=== PATIENT | female | born 1995 | race Caucasian/White ===

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

== ENCOUNTER → 2017-03-19 | Outpatient (CLI) | payer OTHER | END | disposition home or self-care (01) | LOC: LABWHC1 09:33 | PROVIDERS: ATTEND Physician Assistant | DX: E03.9 Hypothyroidism, unspecified (principal) | CPT/HCPCS: 36415; 84439; 84443 ==

== ENCOUNTER 2017-09-05 09:43 | Observation (INO) | payer OTHER ==
[2017-09-05] MEDS ORDERED: SODIUM CHLORIDE 0.9% 1,000 ML IV STA ×3 (10:21→12:58)
--- NOTE | 2017-09-05 10:25 | ED ---
General Adult HPI - General Chief complaint: Nausea/Vomiting/Diarrhea Stated complaint: Nausea Time Seen by Provider: 09/05/17 10:06 Source: patient, RN notes reviewed Mode of arrival: EMS - History of Present Illness Initial comments: Patient 22-year-old female presenting to the emergency room today by EMS, the chief complaint of syncopal episode. Patient states she woke up this morning. Dizzy little lightheaded was trying to going to the bathroom and passed out. She states she did not hurt herself or her mother was able to help her back up. They called 911. EMS did bring her here to the emergency room. At this time she states she is feeling a little bit better. She states she felt a little nauseous when she first woke up. She does admit to abdominal pain in the lower abdomen but states this is been a chronic issue over the last 2 years. Patient denies any other complaints or symptoms. Patient denies any recent fever, chills , shortness of breath, chest pain, back pain, numbness or tingling, dysuria or hematuria, constipation or diarrhea, headaches or visual changes, or any other complaints. - Related Data Home Medications Medication Instructions Recorded Confirmed Sucralfate [Carafate] 1 gm PO QID 11/25/16 09/05/17 Amitriptyline HCl 25 mg PO DAILY 09/05/17 09/05/17 Levothyroxine Sodium [Synthroid] 100 mcg PO DAILY 09/05/17 09/05/17 Lidocaine 4% Cream [Lmx 4] 1 applic TOPICAL TID PRN 09/05/17 09/05/17 Ranitidine HCl [Zantac] 150 mg PO BID 09/05/17 09/05/17 Viorele 1 tab PO DAILY 09/05/17 09/05/17 Allergies Allergy/AdvReac Type Severity Reaction Status Date / Time No Known Allergies Allergy Verified 09/05/17 12:58 Review of Systems ROS Statement: Those systems with pertinent positive or pertinent negative responses have been documented in the HPI. ROS Other: All systems not noted in ROS Statement are negative. Past Medical History Additional Past Medical History / Comment(s): mom states "pain in stomach when eating and after eating" History of Any Multi-Drug Resistant Organisms: None Reported Additional Past Surgical History / Comment(s): eye surg Past Anesthesia/Blood Transfusion Reactions: No Reported Reaction Additional Past Anesthesia/Blood Transfusion Reaction / Comment(s): no hx blood transfusion Past Psychological History: No Psychological Hx Reported Smoking Status: Never smoker Past Alcohol Use History: None Reported Past Drug Use History: None Reported - Past Family History Mother Family Medical History: No Reported History Father Family Medical History: No Reported History General Exam - General Exam Comments Initial Comments: General: The patient is awake and alert, in no distress, and does not appear acutely ill. Eye: Pupils are equal, round and reactive to light, extra-ocular movements are intact. No nystagmus. There is normal conjunctiva bilaterally. No signs of icterus. Ears, nose, mouth and throat: There are moist mucous membranes and no oral lesions. Neck: The neck is supple, there is no tenderness or JVD. Cardiovascular: There is a regular rate and rhythm. No murmur, rub or gallop is appreciated. Respiratory: Lungs are clear to auscultation, respirations are non-labored, breath sounds are equal. No wheezes, stridor, rales, or rhonchi. Gastrointestinal: Soft, non-distended, non-tender abdomen without masses or organomegaly noted. There is no rebound or guarding present. No CVA tenderness. Bowel sounds are unremarkable. Musculoskeletal: Normal ROM, no tenderness. Strength 5/5. Sensation intact. Pulses equal bilaterally 2+. Neurological: A&O x 3. CN II-XII intact, There are no obvious motor or sensory deficits. Coordination appears grossly intact. Speech is normal. Skin: Skin is warm and dry and no rashes or lesions are noted. Psychiatric: Cooperative, appropriate mood & affect, normal judgment. Course Vital Signs 09/05/17 09/05/17 09/05/17 09:47 10:33 12:59 Temperature 98.9 F Pulse Rate 84 Pulse Rate [ 119 H 120 H Sitting] Pulse Rate [ 90 149 H Standing] Pulse Rate [ 119 H 104 H Supine] Respiratory 20 Rate Blood Pressure 144/70 Blood Pressure 121/74 117/83 [Sitting] Blood Pressure 78/47 75/47 [Standing] Blood Pressure 131/78 126/82 [Supine] O2 Sat by Pulse 100 Oximetry EKG Findings - EKG Comments: EKG Findings:: EKG performed at 1025: Shows normal sinus rhythm at 90 bpm. VA interval 136. QRS 90. QT/QTC 358/437. No acute ST changes. Medical Decision Making - Medical Decision Making 22-year-old female presenting to the emergency room by EMS for syncopal episode. Did feel lightheaded dizzy prior to syncope. Patient reexamined at this time is resting comfortably in the stretcher. Patient reexamination and repeat orthostatic vitals at drop in blood pressure rise in the heart rate. This was after 2 L of fluid. Patient be continued on IV fluids at this time. Patient admits to feeling lightheaded and dizzy when she stands up. Admitted to the hospital for orthostatic hypotension. - Lab Data Result diagrams: 09/05/17 10:18 09/05/17 10:18 Lab Results 09/05/17 09/05/17 09/05/17 Range/Units 10:18 10:18 12:08 WBC 7.0 (4.0-11.0) k/uL RBC 4.71 (3.80-5.40) m/uL Hgb 14.6 (11.4-16.0) gm/dL Hct 42.3 (34.0-46.0) % MCV 89.8 (80.0-100.0) fL MCH 31.0 (25.0-35.0) pg MCHC 34.5 (31.0-37.0) g/dL RDW 12.5 (11.5-15.5) % Plt Count 211 (150-450) k/uL Neutrophils % 82 % Lymphocytes % 10 % Monocytes % 6 % Eosinophils % 0 % Basophils % 1 % Neutrophils # 5.7 (1.3-7.7) k/uL Lymphocytes # 0.7 L (1.0-4.8) k/uL Monocytes # 0.4 (0-1.0) k/uL Eosinophils # 0.0 (0-0.7) k/uL Basophils # 0.0 (0-0.2) k/uL Sodium 140 (137-145) mmol/L Potassium 4.4 (3.5-5.1) mmol/L Chloride 105 (98-107) mmol/L Carbon Dioxide 22 (22-30) mmol/L Anion Gap 13 mmol/L BUN 13 (7-17) mg/dL Creatinine 0.65 (0.52-1.04) mg/dL Est GFR (CKD-EPI)AfAm >90 (>60 ml/min/1.73 sqM) Est GFR (CKD-EPI)NonAf >90 (>60 ml/min/1.73 sqM) Glucose 76 (74-99) mg/dL Calcium 9.4 (8.4-10.2) mg/dL Total Bilirubin 0.5 (0.2-1.3) mg/dL AST 23 (14-36) U/L ALT 26 (9-52) U/L Alkaline Phosphatase 44 (38-126) U/L Total Protein 7.4 (6.3-8.2) g/dL Albumin 4.5 (3.5-5.0) g/dL Amylase 66 (30-110) U/L Lipase 57 (23-300) U/L Urine Color Urine Appearance (Clear) Urine pH (5.0-8.0) Ur Specific [place] (1.001-1.035) Urine Protein (Negative) Urine Glucose (UA) (Negative) Urine Ketones (Negative) Urine Blood (Negative) Urine Nitrite (Negative) Urine Bilirubin (Negative) Urine Urobilinogen (<2.0) mg/dL Ur Leukocyte Esterase (Negative) Urine HCG, Qual Not Detected (Not Detectd) 09/05/17 Range/Units 12:08 WBC (4.0-11.0) k/uL RBC (3.80-5.40) m/uL Hgb (11.4-16.0) gm/dL Hct (34.0-46.0) % MCV (80.0-100.0) fL MCH (25.0-35.0) pg MCHC (31.0-37.0) g/dL RDW (11.5-15.5) % Plt Count (150-450) k/uL Neutrophils % % Lymphocytes % % Monocytes % % Eosinophils % % Basophils % % Neutrophils # (1.3-7.7) k/uL Lymphocytes # (1.0-4.8) k/uL Monocytes # (0-1.0) k/uL Eosinophils # (0-0.7) k/uL Basophils # (0-0.2) k/uL Sodium (137-145) mmol/L Potassium (3.5-5.1) mmol/L Chloride (98-107) mmol/L Carbon Dioxide (22-30) mmol/L Anion Gap mmol/L BUN (7-17) mg/dL Creatinine (0.52-1.04) mg/dL Est GFR (CKD-EPI)AfAm (>60 ml/min/1.73 sqM) Est GFR (CKD-EPI)NonAf (>60 ml/min/1.73 sqM) Glucose (74-99) mg/dL Calcium (8.4-10.2) mg/dL Total Bilirubin (0.2-1.3) mg/dL AST (14-36) U/L ALT (9-52) U/L Alkaline Phosphatase (38-126) U/L Total Protein (6.3-8.2) g/dL Albumin (3.5-5.0) g/dL Amylase (30-110) U/L Lipase (23-300) U/L Urine Color Light Yellow Urine Appearance Clear (Clear) Urine pH 5.5 (5.0-8.0) Ur Specific [place] 1.008 (1.001-1.035) Urine Protein Negative (Negative) Urine Glucose (UA) Negative (Negative) Urine Ketones Trace H (Negative) Urine Blood Negative (Negative) Urine Nitrite Negative (Negative) Urine Bilirubin Negative (Negative) Urine Urobilinogen <2.0 (<2.0) mg/dL Ur Leukocyte Esterase Negative (Negative) Urine HCG, Qual (Not Detectd) Disposition Clinical Impression: Orthostatic hypotension, Syncope Disposition: ADMITTED IP TO THIS [facility] Condition: Stable Referrals: Lowell Gardiner DO [Primary Care Provider] - 1-2 days Time of Disposition: 13:09
[2017-09-05 10:56] LABS: Basophils % (A) 1 %; Eosinophils % (A) 0 %; HCT 42.3 % (34.0-46.0); HGB 14.6 gm/dL (11.4-16.0); Lymphocytes # (A) 0.7 k/uL (1.0-4.8); Lymphocytes % (A) 10 %; MCHC 34.5 g/dL (31.0-37.0); MCV 89.8 fL (80.0-100.0); Mean Platelet Volume 7.4; Monocytes # (A) 0.4 k/uL (0-1.0); Monocytes % (A) 6 %; Neutrophils # (A) 5.7 k/uL (1.3-7.7); Neutrophils % (A) 82 %; Platelet Count 211 k/uL (150-450); RBC 4.71 m/uL (3.80-5.40); RDW 12.5 % (11.5-15.5)
[2017-09-05 11:05] LABS: ALT 26 U/L (9-52); AST 23 U/L (14-36); Albumin 4.5 g/dL (3.5-5.0); Alkaline Phosphatase 44 U/L (38-126); Amylase 66 U/L (30-110); Anion Gap 13 mmol/L; Blood Urea Nitrogen 13 mg/dL (7-17); Calcium 9.4 mg/dL (8.4-10.2); Carbon Dioxide 22 mmol/L (22-30); Chloride 105 mmol/L (98-107); Glucose 76 mg/dL (74-99); Lipase 57 U/L (23-300); Potassium 4.4 mmol/L (3.5-5.1); Sodium 140 mmol/L (137-145); Total Bilirubin 0.5 mg/dL (0.2-1.3); Total Protein 7.4 g/dL (6.3-8.2)
--- NOTE | 2017-09-05 11:15 | XR ---
EXAMINATION TYPE: XR chest 2V DATE OF EXAM: 09/05/2017 HISTORY: Syncope. REFERENCE: Previous study dated 08/02/2012. FINDINGS: The lungs are clear. Pleural spaces are clear. The heart is not enlarged. IMPRESSION: NO ACTIVE INTRATHORACIC DISEASE.
[2017-09-05 12:20] LABS: Appearance,Urine Clear (Clear); Bilirubin,Urine Negative (Negative); Blood,Urine Negative (Negative); Color,Urine Light Yellow; Glucose,Urine (UA) Negative (Negative); Ketones,Urine Trace (Negative); Leukocyte Esterase,Urine Negative (Negative); Nitrite,Urine Negative (Negative); PH, Urine 5.5 (5.0-8.0); Protein,Urine Negative (Negative); Specific Gravity,Urine 1.008 (1.001-1.035); Urobilinogen,Urine <2.0 mg/dL (<2.0)
[2017-09-05] MEDS ORDERED: SODIUM CHLORIDE 0.9% 1,000 ML IV ONE (13:09)
[2017-09-05] MEDS ORDERED: NALOXONE 0.4 MG/ML 1 ML VIAL IV PRN (13:09)
[2017-09-05] MEDS ORDERED: ONDANSETRON 4 MG/2 ML VIAL IVP PRN (13:09)
[2017-09-05] MEDS ORDERED: ACETAMINOPHEN TAB 325 MG TAB PO PRN (13:09)
[2017-09-05 15:29] VITALS: BMI 20.5
--- NOTE | 2017-09-05 16:54 | P.HPIM ---
History of Present Illness 22-year-old female presenting to the emergency room today by EMS, the chief complaint of syncopal episode. Patient states she woke up this morning. Dizzy little lightheaded was trying to going to the bathroom and passed out. Patient appears to have significant orthostatic tachycardia. Blood pressure appears to be within normal limits. Patient does have history of hypogonadism patient denied any diarrhea nausea vomiting patient the denied any poor Intake patient' s symptoms improved with IV fluids. Patient denied any flulike symptoms denied any dysuria denied any cough chest x-ray essentially within normal limits TSH will be obtained. Patient does have history of spinal by Angella. Patient is also being evaluated for chronic abdominal pain by Dr Kathryn Melgoza. EKG shows a normal sinus rhythm. Review of Systems REVIEW OF SYSTEMS: CONSTITUTIONAL: No fever, no malaise, no fatigue. HEENT: No recent visual problems or hearing problems. Denied any sore throat. CARDIOVASCULAR: No chest pain, orthopnea, PND, no palpitations, PULMONARY: No shortness of breath, no cough, no hemoptysis. GASTROINTESTINAL: No diarrhea, no nausea, no vomiting, no abdominal pain. Normoactive bowel sounds. NEUROLOGICAL: No headaches, no weakness, no numbness. HEMATOLOGICAL: Denies any bleeding or petechiae. GENITOURINARY: Denies any burning micturition, frequency, or urgency. MUSCULOSKELETAL/RHEUMATOLOGICAL: Denies any joint pain, swelling, or any muscle pain. ENDOCRINE: Denies any polyuria or polydipsia. The rest of the 14-point review of systems is negative. Past Medical History Additional Past Medical History / Comment(s): mom states "pain in stomach when eating and after eating" History of Any Multi-Drug Resistant Organisms: None Reported Additional Past Surgical History / Comment(s): eye surg Past Anesthesia/Blood Transfusion Reactions: No Reported Reaction Additional Past Anesthesia/Blood Transfusion Reaction / Comment(s): no hx blood transfusion Past Psychological History: No Psychological Hx Reported Smoking Status: Never smoker Past Alcohol Use History: None Reported Past Drug Use History: None Reported - Past Family History Mother Family Medical History: No Reported History Father Family Medical History: No Reported History Medications and Allergies Home Medications Medication Instructions Recorded Confirmed Type Sucralfate [Carafate] 1 gm PO QID 11/25/16 09/05/17 History Amitriptyline HCl 25 mg PO DAILY 09/05/17 09/05/17 History Levothyroxine Sodium [Synthroid] 100 mcg PO DAILY 09/05/17 09/05/17 History Lidocaine 4% Cream [Lmx 4] 1 applic TOPICAL TID PRN 09/05/17 09/05/17 History Ranitidine HCl [Zantac] 150 mg PO BID 09/05/17 09/05/17 History Viorele 1 tab PO DAILY 09/05/17 09/05/17 History Allergies Allergy/AdvReac Type Severity Reaction Status Date / Time No Known Allergies Allergy Verified 09/05/17 12:58 Physical Exam Vitals: Vital Signs Temp Pulse Pulse Pulse Pulse Resp BP 09/05/17 15:18 115 H 90 09/05/17 14:54 97.8 F 96 16 125/84 09/05/17 13:05 98.5 F 94 18 123/78 09/05/17 12:59 120 H 149 H 104 H 09/05/17 10:33 119 H 90 119 H 09/05/17 09:47 98.9 F 84 20 144/70 BP BP BP Pulse Ox 09/05/17 15:18 126/57 131/86 125/87 09/05/17 14:54 100 09/05/17 13:05 100 09/05/17 12:59 117/83 75/47 126/82 09/05/17 10:33 121/74 78/47 131/78 09/05/17 09:47 100 Intake and Output 09/05/17 09/05/17 09/05/17 06:59 14:59 22:59 Other: Weight 52.617 kg 52.617 kg PHYSICAL EXAMINATION: GENERAL: The patient is alert and oriented x3, not in any acute distress. Well developed, well nourished. Patient has some congenital speech abnormalities HEENT: Pupils are round and equally reacting to light. EOMI. No scleral icterus. No conjunctival pallor. Normocephalic, atraumatic. No pharyngeal erythema. No thyromegaly. CARDIOVASCULAR: S1 and S2 present. No murmurs, rubs, or gallops. PULMONARY: Chest is clear to auscultation, no wheezing or crackles. ABDOMEN: Soft, nontender, nondistended, normoactive bowel sounds. No palpable organomegaly. MUSCULOSKELETAL: No joint swelling or deformity. EXTREMITIES: No cyanosis, clubbing, or pedal edema. NEUROLOGICAL: Gross neurological examination did not reveal any new focal deficits. gait is abnormal which is chronic has been present since her childhood secondary to spina bifida SKIN: No rashes. Results CBC & Chem 7: 09/05/17 10:18 09/05/17 10:18 Labs: Abnormal Lab Results - Last 24 Hours (Table) 09/05/17 09/05/17 Range/Units 10:18 12:08 Lymphocytes # 0.7 L (1.0-4.8) k/uL Urine Ketones Trace H (Negative) Assessment and Plan Plan: -Syncope positive orthostatic vitals. Patient is not dehydrated doesn't have any signs or symptoms of infection TSH will be obtained echocardiogram will be obtain looking for mitral valve prolapse. Patient may have postural orthostatic tachycardia syndrome are autonomic dysfunction. Cardiology was consulted. -Hypothyroidism: Patient is a little thyroxine and TSH will be obtained. -History of spina bifida with chronic grade abnormality. -Chronic abdominal pain for which patient is being evaluated by gastroenterology as an outpatient.
[2017-09-05] MEDS ORDERED: RX INFO: IV CONTRAST WAS GIVEN 1 EACH MISC MISCELLANE PRN (20:23)
[2017-09-05] MEDS: SUCRALFATE 1 GM TAB PO SCH (21:53)
[2017-09-05] MEDS: FAMOTIDINE 20 MG TAB PO SCH (21:53)
--- NOTE | 2017-09-05 22:02 | CT ---
EXAMINATION TYPE: CT angio chest DATE OF EXAM: 09/05/2017 COMPARISON: NONE HISTORY: r/o PE. Elevated d-dimer and shortness of breath CT DLP: 122.30 mGycm. Automated Exposure Control for Dose Reduction was Utilized. CONTRAST: CTA scan of the thorax is performed with IV Contrast, patient injected with 75 mL of Isovue 370, pulm onary embolism protocol. MIP Images are created on CT scanner and reviewed. FINDINGS: LUNGS: The lungs are grossly clear, there is no concerning parenchymal mass or nodule identified. T here is no pleural effusion or pneumothorax seen. The tracheobronchial tree is patent. MEDIASTINUM: There is satisfactory enhancement of the pulmonary artery and its branches, there is no CT evidence for pulmonary embolism. There are no greater than 1 cm hilar or mediastinal lymph nodes. No cardiomegaly or pericardial effusion is seen. OTHER: No additional significant abnormality is seen. IMPRESSION: No CT evidence for acute pulmonary embolism. No acute pulmonary process identified.
[2017-09-06 04:13] LABS: Amphetamine Screen,Urine Not Detected (NotDetected); Barbiturate Screen,Urine Not Detected (NotDetected); Benzodiazepines Screen,Urine Not Detected (NotDetected); Cocaine Screen,Urine Not Detected (NotDetected); Methadone Screen, Urine Not Detected (NotDetected); Opiate Screen,Urine Not Detected (NotDetected); Oxycodone Screen, Urine Not Detected (NotDetected); Phencyclidine Screen,Urine Not Detected (NotDetected); Tricyclic Antidepressant,Urine Detected (NotDetected); Urn Cannabinoid Scrn Not Detected (NotDetected)
[2017-09-06 06:15] LABS: Basophils % (A) 1 %; Eosinophils % (A) 1 %; HCT 35.8 % (34.0-46.0); HGB 11.7 gm/dL (11.4-16.0); Lymphocytes # (A) 1.1 k/uL (1.0-4.8); Lymphocytes % (A) 25 %; MCH 30.2 pg (25.0-35.0); MCHC 32.6 g/dL (31.0-37.0); MCV 92.7 fL (80.0-100.0); Monocytes # (A) 0.4 k/uL (0-1.0); Monocytes % (A) 9 %; Neutrophils # (A) 2.6 k/uL (1.3-7.7); Neutrophils % (A) 61 %; Platelet Count 213 k/uL (150-450); RBC 3.86 m/uL (3.80-5.40); RDW 12.7 % (11.5-15.5); WBC 4.2 k/uL (4.0-11.0)
[2017-09-06 06:25] LABS: ALT 26 U/L (9-52); AST 17 U/L (14-36); Albumin 3.3 g/dL (3.5-5.0); Alkaline Phosphatase 30 U/L (38-126); Anion Gap 11 mmol/L; Blood Urea Nitrogen 9 mg/dL (7-17); Calcium 8.7 mg/dL (8.4-10.2); Carbon Dioxide 22 mmol/L (22-30); Chloride 108 mmol/L (98-107); Glucose 74 mg/dL (74-99); Potassium 4.1 mmol/L (3.5-5.1); Sodium 141 mmol/L (137-145); Total Bilirubin 0.5 mg/dL (0.2-1.3); Total Protein 5.9 g/dL (6.3-8.2)
[2017-09-06] MEDS: SUCRALFATE 1 GM TAB PO SCH ×4 (08:54→20:40)
[2017-09-06] MEDS: FAMOTIDINE 20 MG TAB PO SCH ×2 (08:54→20:40)
--- NOTE | 2017-09-06 09:13 | P.CRDCN ---
History of Present Illness Consult date: 09/06/17 Chief complaint: Syncopal episode History of present illness: This is a pleasant 22-year-old female patient who was admitted to the hospital with syncope. She was at home with her mother when she had a witnessed syncopal episode. She was standing before she lost her consciousness. Does not recall having any symptoms of heart racing or fluttering nor dizziness or lightheadedness nor chest pain or chest discomfort. Never had syncope in the past. When she presented to the hospital she did have an orthostatic blood pressure changes and she was admitted to the hospital and was given IV fluid. On follow-up with the patient today, she is feeling overall better but she still dizzy and lightheaded. She denies having any chest pain or chest discomfort. The EKG showed sinus rhythm without any significant changes. The chest x-ray did not show any acute abnormalities. No cardiac arrhythmia was noted overnight. I am going to repeat the orthostatic blood pressure this morning. If it's positive she is to be given IV fluid again. Also she might benefit from a tilt table test as an outpatient. Past Medical History Additional Past Medical History / Comment(s): mom states "pain in stomach when eating and after eating" History of Any Multi-Drug Resistant Organisms: None Reported Additional Past Surgical History / Comment(s): eye surg Past Anesthesia/Blood Transfusion Reactions: No Reported Reaction Additional Past Anesthesia/Blood Transfusion Reaction / Comment(s): no hx blood transfusion Past Psychological History: No Psychological Hx Reported Smoking Status: Never smoker Past Alcohol Use History: None Reported Past Drug Use History: None Reported - Past Family History Mother Family Medical History: No Reported History Father Family Medical History: No Reported History Medications and Allergies Home Medications Medication Instructions Recorded Confirmed Type Sucralfate [Carafate] 1 gm PO QID 11/25/16 09/05/17 History Amitriptyline HCl 25 mg PO DAILY 09/05/17 09/05/17 History Levothyroxine Sodium [Synthroid] 100 mcg PO DAILY 09/05/17 09/05/17 History Lidocaine 4% Cream [Lmx 4] 1 applic TOPICAL TID PRN 09/05/17 09/05/17 History Ranitidine HCl [Zantac] 150 mg PO BID 09/05/17 09/05/17 History Viorele 1 tab PO DAILY 09/05/17 09/05/17 History Allergies Allergy/AdvReac Type Severity Reaction Status Date / Time No Known Allergies Allergy Verified 09/05/17 12:58 Physical Exam Vitals: Vital Signs Temp Pulse Pulse Pulse Pulse Resp BP 09/06/17 08:00 97.8 F 125 H 100 18 09/06/17 03:59 97.9 F 80 18 09/06/17 00:00 97.6 F 98 16 09/05/17 20:00 99.1 F 95 100 105 H 16 09/05/17 15:18 115 H 90 09/05/17 14:54 97.8 F 96 16 125/84 09/05/17 13:05 98.5 F 94 18 123/78 09/05/17 12:59 120 H 149 H 104 H 09/05/17 10:33 119 H 90 119 H 09/05/17 09:47 98.9 F 84 20 144/70 BP BP BP Pulse Ox 09/06/17 08:00 103/65 113/64 98 09/06/17 03:59 118/71 99 09/06/17 00:00 110/62 98 09/05/17 20:00 127/78 123/84 123/67 98 09/05/17 15:18 126/57 131/86 125/87 09/05/17 14:54 100 09/05/17 13:05 100 09/05/17 12:59 117/83 75/47 126/82 09/05/17 10:33 121/74 78/47 131/78 09/05/17 09:47 100 Intake and Output 09/05/17 09/06/17 09/06/17 22:59 06:59 14:59 Output Total 850 Balance -850 Output: Urine 850 Other: # Voids 1 Weight 52.617 kg 56 kg - Constitutional General appearance: no acute distress - Respiratory Respiratory: bilateral: CTA - Cardiovascular Rhythm: regular Heart sounds: normal: S1, S2 Results 09/06/17 05:35 09/06/17 05:35 Cardiac Enzymes 09/05/17 09/06/17 Range/Units 10:18 05:35 AST 23 17 (14-36) U/L CBC 09/05/17 09/06/17 Range/Units 10:18 05:35 WBC 7.0 4.2 (4.0-11.0) k/uL RBC 4.71 3.86 (3.80-5.40) m/uL Hgb 14.6 11.7 (11.4-16.0) gm/dL Hct 42.3 35.8 (34.0-46.0) % Plt Count 211 213 (150-450) k/uL Comprehensive Metabolic Panel 09/05/17 09/06/17 Range/Units 10:18 05:35 Sodium 140 141 (137-145) mmol/L Potassium 4.4 4.1 (3.5-5.1) mmol/L Chloride 105 108 H (98-107) mmol/L Carbon Dioxide 22 22 (22-30) mmol/L BUN 13 9 (7-17) mg/dL Creatinine 0.65 0.60 (0.52-1.04) mg/dL Glucose 76 74 (74-99) mg/dL Calcium 9.4 8.7 (8.4-10.2) mg/dL AST 23 17 (14-36) U/L ALT 26 26 (9-52) U/L Alkaline Phosphatase 44 30 L (38-126) U/L Total Protein 7.4 5.9 L (6.3-8.2) g/dL Albumin 4.5 3.3 L (3.5-5.0) g/dL Current Medications Generic Name Dose Route Start Last Admin Trade Name Freq PRN Reason Stop Dose Admin Acetaminophen 650 mg 09/05/17 13:09 09/06/17 03:56 Tylenol Tab PO 650 mg Q6HR PRN Administration Mild Pain or Fever > 100.5 Famotidine 20 mg 09/05/17 21:00 09/06/17 08:54 Pepcid PO 20 mg BID PATRICIA Administration Miscellaneous Information 1 each 09/05/17 20:23 Rx Info: Iv Contrast Was Given MISCELLANE 09/07/17 20:24 DAILY PRN Per Protocol Naloxone HCl 0.2 mg 09/05/17 13:09 Narcan IV Q2M PRN Opioid Reversal Ondansetron HCl 4 mg 09/05/17 13:09 Zofran IVP Q8HR PRN Nausea And Vomiting Sucralfate 1 gm 09/05/17 22:00 09/06/17 08:54 Carafate PO 1 gm QID PATRICIA Administration Intake and Output 09/05/17 09/06/17 09/06/17 22:59 06:59 14:59 Output Total 850 Balance -850 Output: Urine 850 Other: # Voids 1 Weight 52.617 kg 56 kg 09/06/17 05:35 09/06/17 05:35 Assessment and Plan Assessment: Assessment #1 witnessed syncopal episode #2 orthostatic hypotension. Plan #1 I will repeat orthostatic blood pressure this morning #2 I will obtain an echocardiogram was Doppler #3 follow-up with the patient. The patient might benefit from a tilt table test as an outpatient. Thank you for allowing us participate in her care
--- NOTE | 2017-09-06 14:54 | P.PN ---
Subjective 22-year-old female admitted for syncope orthostatic tachycardia. Echocardiogram is pending patient is coming of lightheadedness but feeling better IV fluids are being continued patient on Lotrel table testing tomorrow. Constitutional: Denied any fatigue denied any fever. Cardio vascular: denied any chest pain, palpitations Gastrointestinal denied any nausea vomiting Pulmonary: Denied any shortness of breath cough Neurologic denied any new focal deficits Objective - Vital Signs Vital signs: Vital Signs Temp 98.2 F 09/06/17 11:41 Pulse 103 H 09/06/17 11:41 Resp 18 09/06/17 08:00 BP 122/80 09/06/17 11:41 Pulse Ox 98 09/06/17 08:00 Intake & Output 09/05/17 09/06/17 09/06/17 18:59 06:59 18:59 Intake Total 235 Output Total 850 Balance -850 235 Weight 52.617 kg 56 kg Intake: Oral 235 Output: Urine 850 Other: # Voids 1 3 - Exam PHYSICAL EXAMINATION: GENERAL: The patient is alert and oriented x3, not in any acute distress. Well developed, well nourished. HEENT: Pupils are round and equally reacting to light. EOMI. No scleral icterus. No conjunctival pallor. Normocephalic, atraumatic. No pharyngeal erythema. No thyromegaly. CARDIOVASCULAR: S1 and S2 present. No murmurs, rubs, or gallops. PULMONARY: Chest is clear to auscultation, no wheezing or crackles. ABDOMEN: Soft, nontender, nondistended, normoactive bowel sounds. No palpable organomegaly. MUSCULOSKELETAL: No joint swelling or deformity. EXTREMITIES: No cyanosis, clubbing, or pedal edema. NEUROLOGICAL: Gross neurological examination did not reveal any focal deficits. SKIN: No rashes. - Labs CBC & Chem 7: 09/06/17 05:35 09/06/17 05:35 Labs: Abnormal Lab Results - Last 24 Hours (Table) 09/05/17 09/06/17 09/06/17 Range/Units 16:56 03:49 05:35 D-Dimer 0.77 H (<0.60) mg/L FEU Chloride 108 H (98-107) mmol/L Alkaline Phosphatase 30 L (38-126) U/L Total Protein 5.9 L (6.3-8.2) g/dL Albumin 3.3 L (3.5-5.0) g/dL U Tricyclic Antidepress Detected H (NotDetected) Assessment and Plan Plan: -Syncope positive orthostatic vitals. Patient is not dehydrated doesn't have any signs or symptoms of infection TSH will be obtained echocardiogram will be obtain looking for mitral valve prolapse. Patient may have postural orthostatic tachycardia syndrome are autonomic dysfunction. Cardiology evaluated the patient echo is pending. Patient will undergo tilt table testing. -Hypothyroidism: Patient is a little thyroxine, TSH is within normal limits -History of spina bifida with chronic grade abnormality. -Chronic abdominal pain for which patient is being evaluated by gastroenterology as an outpatient.
[2017-09-06] MEDS: SODIUM CHLORIDE 0.9% 1,000 ML IV SCH (22:11)
[2017-09-07 06:34] LABS: Basophils # (A) 0.1 k/uL (0-0.2); Basophils % (A) 1 %; Eosinophils # (A) 0.1 k/uL (0-0.7); Eosinophils % (A) 2 %; HCT 40.5 % (34.0-46.0); HGB 13.8 gm/dL (11.4-16.0); Lymphocytes # (A) 1.1 k/uL (1.0-4.8); Lymphocytes % (A) 21 %; MCH 31.3 pg (25.0-35.0); Mean Platelet Volume 7.6; Monocytes # (A) 0.4 k/uL (0-1.0); Monocytes % (A) 7 %; Neutrophils # (A) 3.6 k/uL (1.3-7.7); Neutrophils % (A) 67 %; Platelet Count 230 k/uL (150-450); RBC 4.41 m/uL (3.80-5.40); RDW 12.6 % (11.5-15.5); WBC 5.4 k/uL (4.0-11.0)
[2017-09-07 06:54] LABS: Anion Gap 12 mmol/L; Blood Urea Nitrogen 12 mg/dL (7-17); Calcium 9.8 mg/dL (8.4-10.2); Carbon Dioxide 28 mmol/L (22-30); Chloride 101 mmol/L (98-107); Glucose 79 mg/dL (74-99); Potassium 4.6 mmol/L (3.5-5.1); Sodium 141 mmol/L (137-145)
[2017-09-07 07:53] VITALS: RESP 18
[2017-09-07] MEDS: SUCRALFATE 1 GM TAB PO SCH ×3 (08:17→17:22)
[2017-09-07] MEDS: FAMOTIDINE 20 MG TAB PO SCH (08:17)
--- NOTE | 2017-09-07 08:47 | P.PN ---
Subjective Progress Note Date: 09/07/17 Principal diagnosis: Syncope This is a pleasant 22-year-old female patient who was admitted to the hospital with a witnessed syncopal episode. She had positive orthostatic hypotension when she presented to the hospital and that was improved the following day after IV hydration. Her heart rate keep going up once she is doing any little movement. She is going to have a tilt table test today. Also an echocardiogram is in process to be done. She denies having any chest pain or discomfort but clearly she continues to be very dizzy. Objective - Vital Signs Vital signs: Vital Signs Temp 97.8 F 09/07/17 07:49 Pulse 103 H 09/07/17 07:49 Resp 18 09/07/17 07:49 BP 120/68 09/07/17 07:49 Pulse Ox 98 09/07/17 07:49 Intake & Output 09/06/17 09/07/17 09/07/17 18:59 06:59 18:59 Intake Total 235 250 Output Total 200 Balance 235 50 Weight 52.9 kg Intake: Oral 235 250 Output: Urine 200 Other: Voiding Method Toilet # Voids 3 1 # Bowel Movements 0 - Constitutional General appearance: Present: no acute distress - Respiratory Respiratory: bilateral: CTA - Cardiovascular Rhythm: regular Heart sounds: normal: S1, S2 - Labs CBC & Chem 7: 09/07/17 05:43 09/07/17 05:43 Assessment and Plan Assessment: Assessment #1 witnessed syncopal episode #2 orthostatic hypotension. Plan #1 dual table test to be done later on today. #2 follow-up with the echocardiogram Thank you for allowing us participate in her care
[2017-09-07] MEDS ORDERED: SODIUM CHLORIDE 0.9% 500 ML IV ONE (10:02)
[2017-09-07] MEDS ORDERED: SODIUM CHLORIDE 0.9% 1,000 ML IV SCH (10:15)
--- NOTE | 2017-09-07 11:19 | P.PCN ---
Preoperative Diagnosis: Twelve-lead ECG reviewed Sinus rhythm normal [place] narrow QRS normal ST segments Tilt table test ordered by Dr. Mart Baseline blood pressure 139/92 mmHg Baseline heart rate 97 beats a minute Patient tilted upright at an angle of 70 per protocol. Immediately drop in blood pressure to 114/92 mmHg. Heart rates increased 233 beats a minute. Thereafter blood pressure remained stable heart rate remained between 130-140 beats a minute. Initially she was dizzy but gradually she improved. Intermittently she felt a bit warm. No syncope When she was laid supine her blood pressure increased 242/87 mmHg the pulse rate decreased to 87 bpm Impression Findings consistent with orthostatic hypotension with a mild drop in blood pressure in the supine position along with reflex sinus tachycardia
[2017-09-07] MEDS: SODIUM CHLORIDE 0.9% 1,000 ML IV SCH (11:24)
--- NOTE | 2017-09-07 13:08 | P.DS ---
Providers Date of admission: 09/05/17 14:36 Attending physician: Jose Francisco Barrow Consults: 09/05/17 13:09 Consult Physician Stat Consulting Provider: [facility] Consult Reason/Comments: Orthostatic hypotension Do you want consulting provider notified?: Yes [facility] Course: Patient is admitted for syncope. Found to have tachycardia associated with standing. Patient probably has postural orthostatic tachycardia syndrome. Patient was started on hydrocortisone still complaining of some lightheadedness. Patient tilt table test is positive. Patient will be discharged with follow with Cardiology and primary care physician. PHYSICAL EXAMINATION: GENERAL: The patient is alert and oriented x3, not in any acute distress. Well developed, well nourished. HEENT: Pupils are round and equally reacting to light. EOMI. No scleral icterus. No conjunctival pallor. Normocephalic, atraumatic. No pharyngeal erythema. No thyromegaly. CARDIOVASCULAR: S1 and S2 present. No murmurs, rubs, or gallops. PULMONARY: Chest is clear to auscultation, no wheezing or crackles. ABDOMEN: Soft, nontender, nondistended, normoactive bowel sounds. No palpable organomegaly. MUSCULOSKELETAL: No joint swelling or deformity. EXTREMITIES: No cyanosis, clubbing, or pedal edema. NEUROLOGICAL: Gross neurological examination did not reveal any focal deficits. SKIN: No rashes. Assessment and Plan Plan: -Syncope positive orthostatic vitals. Patient is not dehydrated doesn't have any signs or symptoms of infection TSH will be obtained e Echocardiac exam will be obtained as an outpatient -Hypothyroidism: Patient is a little thyroxine, TSH is within normal limits -History of spina bifida with chronic grade abnormality. -Chronic abdominal pain for which patient is being evaluated by gastroenterology as an outpatient. Patient Condition at Discharge: Stable Plan - Discharge Summary Discharge Rx Participant: Yes New Discharge Prescriptions: New Fludrocortisone [Florinef] 0.1 mg PO DAILY #30 tablet No Action Sucralfate [Carafate] 1 gm PO QID Viorele 1 tab PO DAILY Ranitidine HCl [Zantac] 150 mg PO BID Amitriptyline HCl 25 mg PO DAILY Lidocaine 4% Cream [Lmx 4] 1 applic TOPICAL TID PRN PRN Reason: Pain Levothyroxine Sodium [Synthroid] 100 mcg PO DAILY Discharge Medication List Sucralfate [Carafate] 1 gm PO QID 11/25/16 [History] Amitriptyline HCl 25 mg PO DAILY 09/05/17 [History] Levothyroxine Sodium [Synthroid] 100 mcg PO DAILY 09/05/17 [History] Lidocaine 4% Cream [Lmx 4] 1 applic TOPICAL TID PRN 09/05/17 [History] Ranitidine HCl [Zantac] 150 mg PO BID 09/05/17 [History] Viorele 1 tab PO DAILY 09/05/17 [History] Fludrocortisone [Florinef] 0.1 mg PO DAILY #30 tablet 09/07/17 [Rx] Follow up Appointment(s)/Referral(s): Lowell Gardiner DO [Primary Care Provider] - 09/16/17 12:00 pm (With Lizabeth.) Raudel Gonzalez MD [STAFF PHYSICIAN] - 1 Week Patient Instructions/Handouts: Transthoracic Echocardiogram (DC), Syncope (DC) , Tilt Table Test (DC) Activity/Diet/Wound Care/Special Instructions: Awaiting cardiology recommendations if follow up is needed after ECHO and tilt table. Discharge Disposition: HOME SELF-CARE
[2017-09-07 15:24] VITALS: BP 132/68; PULSE 97; TEMP 97.7
--- NOTE | 2017-09-07 15:50 | ECHOF ---
Referral Reason:syncope MEASUREMENTS -------- HEIGHT: 160.0 cm WEIGHT: 52.6 kg BP: 104/62 IVSd: 1.0 cm (0.6 - 1.1) LVIDd: 3.7 cm (3.9 - 5.3) LVPWd: 0.9 cm (0.6 - 1.1) IVSs: 1.0 cm LVIDs: 2.9 cm LVPWs: 1.0 cm LA Diam: 2.2 cm (2.7 - 3.8) RVIDd: 1.8 cm (< 3.3) Ao Diam: 2.7 cm (2.0 - 3.7) LA Diam: 2.1 cm (2.7 - 3.8) AV Cusp: 1.7 cm (1.5 - 2.6) EPSS: 0.3 cm MV E Tyler: 0.68 m/s MV DecT: 178 ms MV A Tyler: 0.65 m/s MV E/A Ratio: 1.05 RAP: 5.00 mmHg RVSP: 13.38 mmHg MV EF SLOPE: 59.46 mm/s (70 - 150) MV EXCURSION: 21.91 mm (> 18.000) FINDINGS -------- Sinus rhythm. This was a technically good study. LV size, wall thickness and systolic function are normal, with an EF greater than 55%. The left rick tricular size is normal. The right ventricle is normal in size. The left atrial size is normal. The right atrial size is normal. The aortic valve is trileaflet, and appears structurally normal. No aortic stenosis or regurgitation. Mild mitral annular calcification present. There is trace mitral regurgitation. Mild tricuspid regurgitation present. There is no evidence of pulmonary hypertension. The right v entricular systolic pressure, as measured by Doppler, is 13.38mmHg. Trace/mild (physiologic) pulmonic regurgitation. The aortic root size is normal. There is no pericardial effusion. CONCLUSIONS -------- 1. LV size, wall thickness and systolic function are normal, with an EF greater than 55%. 2. The left ventricular size is normal. 3. The left atrial size is normal. 4. The aortic valve is trileaflet, and appears structurally normal. No aortic stenosis or regurgitati on. 5. Mild mitral annular calcification present. 6. There is trace mitral regurgitation. 7. Mild tricuspid regurgitation present. 8. There is no evidence of pulmonary hypertension. 9. The right ventricular systolic pressure, as measured by Doppler, is 13.38mmHg. 10. Trace/mild (physiologic) pulmonic regurgitation. 11. The aortic root size is normal. 12. There is no pericardial effusion. BAND LEADER: Regi Gentile RDCS
== END 2017-09-07 19:38 | disposition home or self-care (01) ==
LOC: EC 09:43 → SUPCPDRO 09:43 → 6SEL 14:36
PROVIDERS: ADMIT Hospitalist; ATTEND Hospitalist
DX: I95.1 Orthostatic hypotension (principal); E03.9 Hypothyroidism, unspecified; Q05.9 Spina bifida, unspecified; G89.29 Other chronic pain; R10.30 Lower abdominal pain, unspecified; E23.0 Hypopituitarism; Z79.899 Other long term (current) drug therapy; Z79.890 Hormone replacement therapy; Z79.3 Long term (current) use of hormonal contraceptives; R00.0 Tachycardia, unspecified
CPT/HCPCS: 36415; 71046; 71275; 80048; 80053; 80306; 81003; 81025; 82150; 83690; 84443; 85025; 85379; 93005; 93306; 93660; 96360; 96361; 99285

== ENCOUNTER → 2017-12-10 | Outpatient (CLI) | payer OTHER ==
--- NOTE | 2017-12-10 11:17 | US ---
EXAMINATION TYPE: US abdomen limited DATE OF EXAM: 12/10/2017 COMPARISON: Complete abdominal ultrasound June 09, 2016. CLINICAL HISTORY: R10.9 Abdominal Pain. RUQ pain, NPO EXAM MEASUREMENTS: Liver Length: 15.0 cm Gallbladder Wall: 0.1 cm CBD: 0.2 cm CHD: 0.2 cm Right Kidney: 9.6 x4.6 x 3.6 cm Pancreas: wnl Liver: wnl Gallbladder: wnl Evidence for sonographic Calixto's sign: neg CBD: wnl CHD: wnl Right Kidney: wnl, prominent pyramids seen IMPRESSION: No shadowing mobile gallstones or ultrasound evidence for acute cholecystitis.
== END | disposition home or self-care (01) ==
LOC: RADUSWWP 09:23
PROVIDERS: ATTEND Internal Medicine Gastroenterology
DX: R10.9 Unspecified abdominal pain (principal)
CPT/HCPCS: 76705

== ENCOUNTER 2018-01-02 16:23 | Emergency (ER) | payer OTHER ==
[2018-01-02 17:04] VITALS: TEMP 98.3
--- NOTE | 2018-01-02 20:13 | ED ---
General Adult HPI - General Chief complaint: Dizziness Stated complaint: pale Time Seen by Provider: 01/02/18 19:32 Source: patient, family, RN notes reviewed, old records reviewed Mode of arrival: wheelchair Limitations: no limitations - History of Present Illness Initial comments: Chief complaint and history of present illness a 22-year-old female here with the mother. The patient has a history of pots syndrome. Today she took a Minipress prescribed by her psychiatrist because of high blood pressure. Soon thereafter she had a funny sensation of her heart beating and she felt dizzy. No nausea no vomiting no pain. - Related Data Home Medications Medication Instructions Recorded Confirmed Sucralfate [Carafate] 1 gm PO QID 11/25/16 09/05/17 Levothyroxine Sodium [Synthroid] 100 mcg PO DAILY 09/05/17 09/05/17 Lidocaine 4% Cream [Lmx 4] 1 applic TOPICAL TID PRN 09/05/17 09/05/17 Ranitidine HCl [Zantac] 150 mg PO BID 09/05/17 09/05/17 Viorele 1 tab PO DAILY 09/05/17 09/05/17 Previous Rx's Medication Instructions Recorded Fludrocortisone [Florinef] 0.1 mg PO DAILY #30 tablet 09/07/17 Allergies Allergy/AdvReac Type Severity Reaction Status Date / Time No Known Allergies Allergy Verified 09/05/17 12:58 Review of Systems ROS Statement: Those systems with pertinent positive or pertinent negative responses have been documented in the HPI. Review of systems currently no chest pain or palpitations denies being dizzy. Patient took 1 Minipress 1 mg earlier shortly thereafter had the symptoms. The patient is also taking Florinef keep her blood pressure up. As prescribed by her manager of applications development. Patient had a positive tilt test in August, diagnosed with POTS after a syncopal episode. She also takes a low dose of thyroid supplement. 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 Possibility of mild dehydration also considered. ROS Other: All systems not noted in ROS Statement are negative. Past Medical History Additional Past Medical History / Comment(s): mom states "pain in stomach when eating and after eating" History of Any Multi-Drug Resistant Organisms: None Reported Additional Past Surgical History / Comment(s): eye surg Past Anesthesia/Blood Transfusion Reactions: No Reported Reaction Additional Past Anesthesia/Blood Transfusion Reaction / Comment(s): no hx blood transfusion Past Psychological History: Depression Smoking Status: Never smoker Past Alcohol Use History: None Reported Past Drug Use History: None Reported - Past Family History Mother Family Medical History: No Reported History Father Family Medical History: No Reported History General Exam - General Exam Comments Initial Comments: General: The patient is awake and alert, had potential side effect to taking a Minipress earlier in the day. Vital signs show temperature 98.3 pulse 91 respiratory rate 16 pulse ox 90% room air blood pressure 147/88 Eye: Pupils are equal, round and reactive to light, extra-ocular movements are intact ; there is normal conjunctiva bilaterally. No signs of icterus. Ears, nose, mouth and throat: There are moist mucous membranes and no oral lesions. Neck: The neck is supple, there is no tenderness . Cardiovascular: There is a regular rate and rhythm. No murmur, rub or gallop is appreciated. Respiratory: Lungs are clear to auscultation, respirations are non-labored, breath sounds are equal. No wheezes, stridor, rales, or rhonchi. Gastrointestinal: Soft, non-distended, non-tender abdomen without masses or organomegaly noted. There is no rebound or guarding present. No CVA tenderness. Bowel sounds are unremarkable. Back: There is no tenderness to palpation in the midline. There is no obvious deformity. No rashes noted. History spina bifida Musculoskeletal: Normal ROM, no tenderness, There is no pedal edema. There is no calf tenderness or swelling. Sensation intact. Pulses equal bilaterally 2+. Neurological: CN II-XII intact, There are no obvious motor or sensory deficits. Coordination appears grossly intact. . No neuro deficits Skin: Skin is warm and dry and no rashes or lesions are noted. Psychiatric: Cooperative, Limitations: no limitations Course Vital Signs 01/02/18 01/02/18 16:57 21:39 Temperature 98.3 F Pulse Rate 91 Pulse Rate [ 63 Sitting] Pulse Rate [ 67 Standing] Pulse Rate [ 60 Supine] Respiratory 16 Rate Blood Pressure 147/88 Blood Pressure 145/90 [Right Arm Sitting] Blood Pressure 139/90 [Right Arm Standing] Blood Pressure 148/89 [Right Arm Supine] O2 Sat by Pulse 98 Oximetry EKG Findings - EKG Comments: EKG Findings:: EKG was done and reviewed at 2134 showing sinus bradycardia rate 58. No acute ST elevation no ectopy no ischemic changes. IA interval is 1:30 QRS 86 QT [address] Huitron Medical Decision Making - Medical Decision Making Medical decision making; this is a 22-year-old female who was prescribed, by her psychiatrist, Minipress because of high blood pressure in the office. She does have a history of pots. She takes Florinef keep the blood pressure elevated. An hour or so after she took medication she said she felt dizzy and weak. She went home and rested. Because of her history of pots she's come the emergency room. Patient denying any headache chest pain palpitations shortness breath at this time though she did earlier. Patient had orthostatics performed while in emergency room laying blood pressure 148/86 with a heart rate 1 await. Sitting was 145/90 with a heart rate of 108. Standing 139/80 with heart rate of 106. She did not feel funny during the examination. Patient was working outside on a hot day today. She thought she may be slightly dehydrated. Labs show white count of 5 hemoglobin 12.8 hematocrit of 40 with a potassium 3.3. He went 9 creatinine 0.5 the GFR 90. Glucose 83. The patient did receive a bolus of fluid 500 ML's states she feels better. No dizziness. No neuro deficits appreciated. Orthostatics were performed a state within normal limits. Patient's feeling better. She was advised not to take anymore Minipress. Call follow-up with family physician and manager of applications development. Continue her home medications and stay hydrated. Eat a balanced diet. Released to mother's care. - Lab Data Result diagrams: 01/02/18 21:17 01/02/18 21:17 Lab Results 01/02/18 01/02/18 Range/Units 21:17 21:17 WBC 5.4 (4.0-11.0) k/uL RBC 4.40 (3.80-5.40) m/uL Hgb 12.8 (11.4-16.0) gm/dL Hct 40.2 (34.0-46.0) % MCV 91.3 (80.0-100.0) fL MCH 29.2 (25.0-35.0) pg MCHC 31.9 (31.0-37.0) g/dL RDW 12.9 (11.5-15.5) % Plt Count 216 (150-450) k/uL Neutrophils % 67 % Lymphocytes % 22 % Monocytes % 7 % Eosinophils % 0 % Basophils % 1 % Neutrophils # 3.6 (1.3-7.7) k/uL Lymphocytes # 1.2 (1.0-4.8) k/uL Monocytes # 0.4 (0-1.0) k/uL Eosinophils # 0.0 (0-0.7) k/uL Basophils # 0.0 (0-0.2) k/uL Sodium 140 (137-145) mmol/L Potassium 3.3 L (3.5-5.1) mmol/L Chloride 105 (98-107) mmol/L Carbon Dioxide 26 (22-30) mmol/L Anion Gap 9 mmol/L BUN 9 (7-17) mg/dL Creatinine 0.50 L (0.52-1.04) mg/dL Est GFR (CKD-EPI)AfAm >90 (>60 ml/min/1.73 sqM) Est GFR (CKD-EPI)NonAf >90 (>60 ml/min/1.73 sqM) Glucose 83 (74-99) mg/dL Calcium 9.3 (8.4-10.2) mg/dL Disposition Clinical Impression: Adverse reaction to drug, Orthostatic hypotension Disposition: HOME SELF-CARE Condition: Fair Instructions: Dizziness (ED) Is patient prescribed a controlled substance at d/c from ED?: No Referrals: Lowell Gardiner DO [Primary Care Provider] - 1-2 days Time of Disposition: 22:39
[2018-01-02 21:37] LABS: Basophils % (A) 1 %; Eosinophils % (A) 0 %; HCT 40.2 % (34.0-46.0); HGB 12.8 gm/dL (11.4-16.0); Lymphocytes # (A) 1.2 k/uL (1.0-4.8); Lymphocytes % (A) 22 %; MCH 29.2 pg (25.0-35.0); MCHC 31.9 g/dL (31.0-37.0); MCV 91.3 fL (80.0-100.0); Mean Platelet Volume 8.1; Monocytes # (A) 0.4 k/uL (0-1.0); Monocytes % (A) 7 %; Neutrophils # (A) 3.6 k/uL (1.3-7.7); Neutrophils % (A) 67 %; Platelet Count 216 k/uL (150-450); RDW 12.9 % (11.5-15.5); WBC 5.4 k/uL (4.0-11.0)
[2018-01-02 21:49] LABS: Anion Gap 9 mmol/L; Blood Urea Nitrogen 9 mg/dL (7-17); Calcium 9.3 mg/dL (8.4-10.2); Carbon Dioxide 26 mmol/L (22-30); Chloride 105 mmol/L (98-107); Glucose 83 mg/dL (74-99); Potassium 3.3 mmol/L (3.5-5.1); Sodium 140 mmol/L (137-145)
[2018-01-02 22:50] VITALS: BP 142/99; PULSE 76; RESP 17
== END 2018-01-02 22:50 | disposition home or self-care (01) ==
LOC: EC 16:23
DX: I95.1 Orthostatic hypotension (principal); T44.6X5A Adverse effect of alpha-adrenoreceptor antagonists, initial encounter; Z79.3 Long term (current) use of hormonal contraceptives; Z79.899 Other long term (current) drug therapy
CPT/HCPCS: 36415; 80048; 85025; 93005; 99284

== ENCOUNTER → 2018-01-20 | Outpatient (CLI) | payer OTHER ==
[2018-01-20 12:27] LABS: Basophils % (A) 1 %; Eosinophils % (A) 1 %; HCT 43.5 % (34.0-46.0); HGB 14.2 gm/dL (11.4-16.0); Lymphocytes % (A) 22 %; MCH 30.4 pg (25.0-35.0); MCHC 32.7 g/dL (31.0-37.0); MCV 92.9 fL (80.0-100.0); Mean Platelet Volume 8.2; Monocytes # (A) 0.3 k/uL (0-1.0); Monocytes % (A) 7 %; Neutrophils # (A) 3.2 k/uL (1.3-7.7); Neutrophils % (A) 68 %; Platelet Count 214 k/uL (150-450); RBC 4.69 m/uL (3.80-5.40); WBC 4.7 k/uL (4.0-11.0)
[2018-01-20 12:46] LABS: ALT 30 U/L (9-52); AST 21 U/L (14-36); Albumin 4.8 g/dL (3.5-5.0); Alkaline Phosphatase 49 U/L (38-126); Anion Gap 9 mmol/L; Blood Urea Nitrogen 7 mg/dL (7-17); Calcium 9.6 mg/dL (8.4-10.2); Carbon Dioxide 29 mmol/L (22-30); Chloride 103 mmol/L (98-107); Glucose 80 mg/dL (74-99); Potassium 3.9 mmol/L (3.5-5.1); Sodium 141 mmol/L (137-145); Total Bilirubin 0.7 mg/dL (0.2-1.3); Total Protein 7.7 g/dL (6.3-8.2)
[2018-01-20 13:00] LABS: T4, Free (Free Thyroxine) 1.13 ng/dL (0.78-2.19)
== END | disposition home or self-care (01) ==
LOC: LABWHC1 11:28
PROVIDERS: ATTEND Physician Assistant
DX: E03.9 Hypothyroidism, unspecified (principal); Q03.1 Atresia of foramina of Magendie and Luschka; N94.6 Dysmenorrhea, unspecified
CPT/HCPCS: 36415; 80053; 83001; 84439; 84443; 85025

== ENCOUNTER → 2018-03-12 | Outpatient (CLI) | payer OTHER ==
--- NOTE | 2018-03-12 12:40 | US ---
EXAMINATION TYPE: US pelvic complete DATE OF EXAM: 03/12/2018 COMPARISON: NONE CLINICAL HISTORY: R10.2 PELVIC PAIN. RLQ pain TECHNIQUE: TA. Transabdominal sonographic images of the pelvis were acquired. Date of LMP: 02/21/2018 EXAM MEASUREMENTS: Uterus: 6.3 x 3.9 x 3.3 cm Endometrial Stripe: 1.1 cm Right Ovary: 3.9 x 2.8 x 2.6 cm Left Ovary: 2.9 x 1.6 x 2.4 cm Follicles are within the bilateral ovaries. 1. Uterus: Anteverted wnl 2. Endometrium: wnl 3. Right Ovary: wnl 4. Left Ovary: wnl 5. Bilateral Adnexa: wnl 6. Posterior cul-de-sac: wnl IMPRESSION: 1. Unremarkable pelvic ultrasound
== END | disposition home or self-care (01) ==
LOC: RADUSWWP 10:14
PROVIDERS: ATTEND Obstetrics & Gynecology
DX: R10.2 Pelvic and perineal pain (principal)
CPT/HCPCS: 76856

== ENCOUNTER → 2018-07-27 | Outpatient (CLI) | payer OTHER ==
--- NOTE | 2018-07-27 12:21 | XR ---
EXAMINATION TYPE: XR chest 2V DATE OF EXAM: 07/27/2018 COMPARISON: Chest x-ray and CTA chest from September 05, 2017 HISTORY: Chronic cough since May. TECHNIQUE: Frontal and lateral views of the chest are obtained. FINDINGS: There is no focal air space opacity, pleural effusion, or pneumothorax seen. The cardiac silhouette size is within normal limits. The osseous structures are intact. IMPRESSION: No acute cardiopulmonary process. No significant change from priors.
== END ==
LOC: CPPFTMAIN 10:35
PROVIDERS: ATTEND Internal Medicine
DX: R05 Cough (principal); J45.909 Unspecified asthma, uncomplicated
CPT/HCPCS: 71046; 94060; 94726; 94729

== ENCOUNTER → 2018-08-04 | Outpatient (CLI) | payer OTHER ==
--- NOTE | 2018-08-04 12:46 | XR ---
EXAMINATION TYPE: XR pelvis AP view DATE OF EXAM: 08/04/2018 CLINICAL HISTORY: Pain for months TECHNIQUE: A single AP view of the pelvis is obtained. COMPARISON: None. FINDINGS: There is no acute fracture/dislocation evident in the pelvis. The hip and sacroiliac join ts appear symmetric and unremarkable. The overlying soft tissue appears unremarkable. IMPRESSION: As above.
== END | disposition home or self-care (01) ==
LOC: RADXRMAIN 12:04
PROVIDERS: ATTEND Nurse Practitioner Primary Care
DX: R10.2 Pelvic and perineal pain (principal)
CPT/HCPCS: 72170

== ENCOUNTER → 2018-10-20 | Outpatient (CLI) | payer OTHER ==
--- NOTE | 2018-10-20 15:40 | XR ---
2 view abdomen HISTORY: Pain 2 views the abdomen correlated to prior abdomen film dated 03/19/2012 Lung bases are clear. There is no evident pneumoperitoneum or bowel obstruction. Mild spinal curvatur e could be positional. Calcification in the pelvis may represent phleboliths. Spina bifida occulta at S1. IMPRESSION: Nonobstructive bowel gas pattern.
== END | disposition home or self-care (01) ==
LOC: RADXRMAIN 12:59
PROVIDERS: ATTEND Physician Assistant
DX: R15.9 Full incontinence of feces (principal)
CPT/HCPCS: 74019

== ENCOUNTER → 2018-11-11 | Outpatient (CLI) | payer OTHER ==
[2018-11-11 14:22] LABS: Basophils # (A) 0.1 k/uL (0-0.2); Basophils % (A) 1 %; Eosinophils % (A) 1 %; HCT 41.1 % (34.0-46.0); HGB 13.1 gm/dL (11.4-16.0); Lymphocytes # (A) 1.3 k/uL (1.0-4.8); Lymphocytes % (A) 26 %; MCHC 31.8 g/dL (31.0-37.0); MCV 94.5 fL (80.0-100.0); Monocytes # (A) 0.2 k/uL (0-1.0); Monocytes % (A) 5 %; Neutrophils # (A) 3.3 k/uL (1.3-7.7); Neutrophils % (A) 65 %; Platelet Count 244 k/uL (150-450); RBC 4.35 m/uL (3.80-5.40); RDW 13.1 % (11.5-15.5)
[2018-11-11 19:00] LABS: African American GFR (CKD) 93.3 (60.0-200.0); Albumin 4.9 g/dL (3.80-4.90); Albumin/Globulin Ratio 2.13 (1.60-3.17); Anion Gap 7.9 mmol/L (4.00-12.00); Calcium 9.6 mg/dL (8.7-10.3); Carbon Dioxide 24.1 mmol/L (21.6-31.8); Globulin 2.3 g/dL (1.6-3.3); Potassium 4.2 mmol/L (3.5-5.5); Total Bilirubin 0.4 mg/dL (0.2-1.2); Total Protein 7.2 g/dL (6.2-8.2)
[2018-11-11 19:06] LABS: T4, Free (Free Thyroxine) 1.1 ng/dL (0.80-1.80)
== END | disposition home or self-care (01) ==
LOC: LABWHC1 13:03
PROVIDERS: ATTEND Physician Assistant
DX: E03.9 Hypothyroidism, unspecified (principal); R63.4 Abnormal weight loss
CPT/HCPCS: 36415; 80053; 84439; 84443; 85025

== ENCOUNTER → 2018-11-12 | Outpatient (CLI) | payer OTHER ==
--- NOTE | 2018-11-12 10:40 | US ---
EXAMINATION TYPE: US abdomen complete DATE OF EXAM: 11/12/2018 COMPARISON: NONE CLINICAL HISTORY: R19.7 Diarrhea, unspecified, R63.4 Abnormal weight. Abdominal pain for 2 months. Na usea, diarrhea, weight loss EXAM MEASUREMENTS: Liver Length: 14.1 cm Gallbladder Wall: 0.2 cm CBD: 0.1 cm Spleen: 7.6 cm Right Kidney: 10.0 x 3.2 x 5.0 cm Left Kidney: 10.4 x 5.6 x 5.1 cm Pancreas: limited evaluation Liver: wnl Gallbladder: no evidence of stones. Small nonshadowing polyps are questioned measuring 2 mm and 4 mm although could relate to gallbladder folds and are not seen on the prior of 12/18/2017. Evidence for sonographic Calixto's sign: no CBD: appears wnl Spleen: wnl Right Kidney: no evidence of hydronephrosis Left Kidney: no evidence of hydronephrosis Upper IVC: wnl Abd Aorta: wnl The liver is homogenous. The intrahepatic portion of the IVC and proximal abdominal aorta are within normal limits. There is no evidence of cholelithiasis. Common bile duct is unremarkable. The visu alized portions of the pancreas are homogenous. The spleen is unremarkable. Kidneys are symmetric a nd free of hydronephrosis. No renal lesions are seen. IMPRESSION: Possible small gallbladder polyps versus gallbladder folds. These were not present on the exam of 201 8. Annual surveillance would be recommended for polyps of this size. No sonographic evidence of acute cholecystitis.
== END | disposition home or self-care (01) ==
LOC: RADUSWWP 09:52
PROVIDERS: ATTEND Family Medicine
DX: R19.7 Diarrhea, unspecified (principal); R63.4 Abnormal weight loss
CPT/HCPCS: 76700

== ENCOUNTER 2018-12-18 12:13 | Emergency (ER) | payer OTHER ==
[2018-12-18 13:33] LABS: Appearance,Urine Clear (Clear); Bilirubin,Urine Negative (Negative); Blood,Urine Large (Negative); Color,Urine Light Red; Glucose,Urine (UA) Negative (Negative); Ketones,Urine Negative (Negative); Leukocyte Esterase,Urine Negative (Negative); Mucus,Urine Rare /hpf; Nitrite,Urine Negative (Negative); Protein,Urine Trace (Negative); RBC,Urine >182 /hpf (0-5); Specific Gravity,Urine 1.021 (1.001-1.035); Urobilinogen,Urine <2.0 mg/dL (<2.0)
[2018-12-18] MEDS ORDERED: ONDANSETRON 4 MG/2 ML VIAL IVP STA (13:48)
[2018-12-18] MEDS ORDERED: SODIUM CHLORIDE 0.9% 1,000 ML IV STA (13:48)
[2018-12-18] MEDS ORDERED: MORPHINE SULFATE 4 MG/ML SYRINGE IV STA (13:48)
[2018-12-18 14:08] LABS: Basophils % (A) 1 %; Eosinophils % (A) 0 %; HCT 37.9 % (34.0-46.0); HGB 13.1 gm/dL (11.4-16.0); Lymphocytes # (A) 0.7 k/uL (1.0-4.8); Lymphocytes % (A) 12 %; MCH 31.3 pg (25.0-35.0); MCHC 34.5 g/dL (31.0-37.0); MCV 90.7 fL (80.0-100.0); Mean Platelet Volume 8.7; Monocytes # (A) 0.3 k/uL (0-1.0); Monocytes % (A) 5 %; Neutrophils # (A) 4.9 k/uL (1.3-7.7); Neutrophils % (A) 81 %; Platelet Count 219 k/uL (150-450); RBC 4.18 m/uL (3.80-5.40); RDW 14.1 % (11.5-15.5)
--- NOTE | 2018-12-18 14:14 | ED ---
General Adult HPI - General Chief complaint: Nausea/Vomiting/Diarrhea Stated complaint: Vomiting Time Seen by Provider: 12/18/18 12:29 Source: patient Mode of arrival: ambulatory Limitations: no limitations - History of Present Illness Initial comments: Patient is a 23-year-old female presenting to emergency Department with nausea vomiting. Patient reports abdominal pain, diarrhea and nausea for approximately 2-3 months. Patient reports she developed her first episode of vomiting today. Patient reports occasional bloody diarrhea over the same period. Patient reports the pain is in the epigastric region and right upper quadrant. Patient reports the pain comes and goes. Patient reports the pain again and immediately after eating food. Patient reports testing by her primary care resulted in possible gastroneuritis but patient was scheduled for a HIDA scan however the insurance would not approve it. Patient denies hematuria or melena. Patient does report poor appetite and states that she has lost weight since the symptoms started 2-3 months ago. Patient denies fever, headache, chest pain, chest tightness, shortness of breath. Patient is currently on her menstrual cycle. - Related Data Home Medications Medication Instructions Recorded Confirmed Sucralfate [Carafate] 1 gm PO QID 11/25/16 09/05/17 Levothyroxine Sodium [Synthroid] 100 mcg PO DAILY 09/05/17 09/05/17 Lidocaine 4% Cream [Lmx 4] 1 applic TOPICAL TID PRN 09/05/17 09/05/17 Ranitidine HCl [Zantac] 150 mg PO BID 09/05/17 09/05/17 Viorele 1 tab PO DAILY 09/05/17 09/05/17 Previous Rx's Medication Instructions Recorded Fludrocortisone [Florinef] 0.1 mg PO DAILY #30 tablet 09/07/17 Famotidine [Pepcid] 20 mg PO BID #28 tablet 12/18/18 Loperamide [Imodium] 2 mg PO BID #20 capsule 12/18/18 Ondansetron Odt [Zofran Odt] 4 mg PO Q8HR PRN #10 tab 12/18/18 Allergies Allergy/AdvReac Type Severity Reaction Status Date / Time No Known Allergies Allergy Verified 12/18/18 12:14 Review of Systems ROS Statement: Those systems with pertinent positive or pertinent negative responses have been documented in the HPI. ROS Other: All systems not noted in ROS Statement are negative. Past Medical History Additional Past Medical History / Comment(s): mom states "pain in stomach when eating and after eating", POTS disease History of Any Multi-Drug Resistant Organisms: None Reported Additional Past Surgical History / Comment(s): eye surg Past Anesthesia/Blood Transfusion Reactions: No Reported Reaction Additional Past Anesthesia/Blood Transfusion Reaction / Comment(s): no hx blood transfusion Past Psychological History: Depression Smoking Status: Never smoker Past Alcohol Use History: None Reported Past Drug Use History: None Reported - Past Family History Mother Family Medical History: No Reported History Father Family Medical History: No Reported History General Exam Limitations: no limitations General appearance: alert, in no apparent distress Head exam: Present: atraumatic, normocephalic, normal inspection Eye exam: Present: normal appearance, PERRL, EOMI Pupils: Present: normal accommodation ENT exam: Present: normal exam, mucous membranes moist, normal external ear exam Neck exam: Present: normal inspection, full ROM Respiratory exam: Present: normal lung sounds bilaterally Cardiovascular Exam: Present: regular rate, normal rhythm, normal heart sounds GI/Abdominal exam: Present: soft, tenderness (Positive Calixto sign. Epigastric tenderness with palpation), normal bowel sounds. Absent: distended, guarding, rebound, mass, bruit, pulsatile mass, hernia Extremities exam: Present: normal inspection, full ROM Back exam: Present: normal inspection, full ROM Neurological exam: Present: alert, oriented X3 Psychiatric exam: Present: normal affect, normal mood Skin exam: Present: warm, intact, normal color Course Vital Signs 12/18/18 12/18/18 12:14 15:04 Temperature 97.5 F L Pulse Rate 100 54 L Respiratory 18 16 Rate Blood Pressure 129/88 109/83 O2 Sat by Pulse 98 100 Oximetry Medical Decision Making - Medical Decision Making Patient is a 23-year-old female presenting to emergency Department with abdominal pain and vomiting. Labs are unremarkable. UA is indicative of elevated red blood cells which can be most likely drug related to menstrual bleeding. CT of the abdomen and pelvis is indicative of mild pelvic fluid but otherwise unremarkable. Based on history and physical exam and I suspect the patient to be having gastritis or possibly GERD. At this point in time patient will need further outpatient evaluation by GI specialist. Patient will be discharged with Imodium, Zofran and Pepcid. Patient was given 2 mg morphine for pain, Zofran for nausea and a liter of fluid. Strict return parameters were t horoughly discussed with patient who is understanding and agreeable. Case discussed with physician. - Lab Data Result diagrams: 12/18/18 13:19 12/18/18 13:50 Lab Results 12/18/18 12/18/18 12/18/18 Range/Units 13:19 13:19 13:19 WBC 6.0 (3.8-10.6) k/uL RBC 4.18 (3.80-5.40) m/uL Hgb 13.1 (11.4-16.0) gm/dL Hct 37.9 (34.0-46.0) % MCV 90.7 (80.0-100.0) fL MCH 31.3 (25.0-35.0) pg MCHC 34.5 (31.0-37.0) g/dL RDW 14.1 (11.5-15.5) % Plt Count 219 (150-450) k/uL Neutrophils % 81 % Lymphocytes % 12 % Monocytes % 5 % Eosinophils % 0 % Basophils % 1 % Neutrophils # 4.9 (1.3-7.7) k/uL Lymphocytes # 0.7 L (1.0-4.8) k/uL Monocytes # 0.3 (0-1.0) k/uL Eosinophils # 0.0 (0-0.7) k/uL Basophils # 0.0 (0-0.2) k/uL Sodium (137-145) mmol/L Potassium (3.5-5.1) mmol/L Chloride (98-107) mmol/L Carbon Dioxide (22-30) mmol/L Anion Gap mmol/L BUN (7-17) mg/dL Creatinine (0.52-1.04) mg/dL Est GFR (CKD-EPI)AfAm (>60 ml/min/1.73 sqM) Est GFR (CKD-EPI)NonAf (>60 ml/min/1.73 sqM) Glucose (74-99) mg/dL Calcium (8.4-10.2) mg/dL Total Bilirubin (0.2-1.3) mg/dL AST (14-36) U/L ALT (9-52) U/L Alkaline Phosphatase (38-126) U/L Total Protein (6.3-8.2) g/dL Albumin (3.5-5.0) g/dL Lipase (23-300) U/L Urine Color Light Red Urine Appearance Clear (Clear) Urine pH 6.0 (5.0-8.0) Ur Specific [place] 1.021 (1.001-1.035) Urine Protein Trace H (Negative) Urine Glucose (UA) Negative (Negative) Urine Ketones Negative (Negative) Urine Blood Large H (Negative) Urine Nitrite Negative (Negative) Urine Bilirubin Negative (Negative) Urine Urobilinogen <2.0 (<2.0) mg/dL Ur Leukocyte Esterase Negative (Negative) Urine RBC >182 H (0-5) /hpf Urine WBC 4 (0-5) /hpf Urine Mucus Rare H (None) /hpf Urine HCG, Qual Not Detected (Not Detectd) 12/18/18 Range/Units 13:50 WBC (3.8-10.6) k/uL RBC (3.80-5.40) m/uL Hgb (11.4-16.0) gm/dL Hct (34.0-46.0) % MCV (80.0-100.0) fL MCH (25.0-35.0) pg MCHC (31.0-37.0) g/dL RDW (11.5-15.5) % Plt Count (150-450) k/uL Neutrophils % % Lymphocytes % % Monocytes % % Eosinophils % % Basophils % % Neutrophils # (1.3-7.7) k/uL Lymphocytes # (1.0-4.8) k/uL Monocytes # (0-1.0) k/uL Eosinophils # (0-0.7) k/uL Basophils # (0-0.2) k/uL Sodium 139 (137-145) mmol/L Potassium 4.4 (3.5-5.1) mmol/L Chloride 109 H (98-107) mmol/L Carbon Dioxide 18 L (22-30) mmol/L Anion Gap 12 mmol/L BUN 13 (7-17) mg/dL Creatinine 0.73 (0.52-1.04) mg/dL Est GFR (CKD-EPI)AfAm >90 (>60 ml/min/1.73 sqM) Est GFR (CKD-EPI)NonAf >90 (>60 ml/min/1.73 sqM) Glucose 85 (74-99) mg/dL Calcium 9.5 (8.4-10.2) mg/dL Total Bilirubin 0.5 (0.2-1.3) mg/dL AST 21 (14-36) U/L ALT 17 (9-52) U/L Alkaline Phosphatase 43 (38-126) U/L Total Protein 7.9 (6.3-8.2) g/dL Albumin 4.8 (3.5-5.0) g/dL Lipase 99 (23-300) U/L Urine Color Urine Appearance (Clear) Urine pH (5.0-8.0) Ur Specific [place] (1.001-1.035) Urine Protein (Negative) Urine Glucose (UA) (Negative) Urine Ketones (Negative) Urine Blood (Negative) Urine Nitrite (Negative) Urine Bilirubin (Negative) Urine Urobilinogen (<2.0) mg/dL Ur Leukocyte Esterase (Negative) Urine RBC (0-5) /hpf Urine WBC (0-5) /hpf Urine Mucus (None) /hpf Urine HCG, Qual (Not Detectd) Disposition Clinical Impression: Abdominal pain, Nausea Disposition: HOME SELF-CARE Condition: Stable Instructions (If sedation given, give patient instructions): Acute Nausea and Vomiting (ED) Additional Instructions: Please take prescribed medication as directed. Please follow up with a GI specialist. Please return to emergency department if symptoms worsen. Is patient prescribed a controlled substance at d/c from ED?: No Referrals: Lowell Gardiner DO [Primary Care Provider] - 1-2 days Time of Disposition: 16:25
[2018-12-18 14:20] LABS: ALT 17 U/L (9-52); AST 21 U/L (14-36); African American GFR (CKD) >90 (>60 ml/min/1.73 sqM); Albumin 4.8 g/dL (3.5-5.0); Alkaline Phosphatase 43 U/L (38-126); Anion Gap 12 mmol/L; Blood Urea Nitrogen 13 mg/dL (7-17); Calcium 9.5 mg/dL (8.4-10.2); Carbon Dioxide 18 mmol/L (22-30); Chloride 109 mmol/L (98-107); Glucose 85 mg/dL (74-99); Lipase 99 U/L (23-300); Potassium 4.4 mmol/L (3.5-5.1); Sodium 139 mmol/L (137-145); Total Bilirubin 0.5 mg/dL (0.2-1.3); Total Protein 7.9 g/dL (6.3-8.2)
[2018-12-18 15:05] VITALS: RESP 16
--- NOTE | 2018-12-18 15:57 | CT ---
EXAMINATION TYPE: CT abdomen pelvis w con DATE OF EXAM: 12/18/2018 COMPARISON: HISTORY: Generalized abdominal pain and vomiting. CT DLP: 387.1 mGycm Automated exposure control for dose reduction was used. TECHNIQUE: Helical acquisition of images was performed from the lung bases through the pelvis. CONTRAST: Performed without Oral Contrast and with IV Contrast, patient injected with 100ml mL of Isovue 300. FINDINGS: Lung bases are clear. There is no pleural effusion. Heart size is normal. There is no pericardial eff usion. Liver spleen pancreas gallbladder appear normal. Bile ducts are not dilated. There is no adrenal mass. Kidneys show satisfactory contrast opacification. There is no hydronephrosi s. Bladder distends smoothly. Uterus is retroverted. There is mild free fluid in the pelvis. There ar e a few prominent vessels in the pelvis in both adnexal regions. There is no retroperitoneal adenopathy. Appendix is not seen. There is no sign of a thickened appendi x. There is no mesenteric edema. There is no evidence of free air. Lumbar vertebra have normal spacing and alignment. There is no evidence of a fracture. Bony pelvis ap pears intact. IMPRESSION: THERE IS MILD FREE FLUID IN THE PELVIS. THERE ARE SOME BILATERAL PELVIC VARICOSE VEINS.
[2018-12-18 17:00] VITALS: BP 112/78; PULSE 64; TEMP 98.6
== END 2018-12-18 16:59 | disposition home or self-care (01) ==
LOC: EC 12:13
DX: R11.2 Nausea with vomiting, unspecified (principal); R10.13 Epigastric pain; R10.11 Right upper quadrant pain; R19.7 Diarrhea, unspecified; R63.0 Anorexia; R63.4 Abnormal weight loss; Z79.890 Hormone replacement therapy; Z79.3 Long term (current) use of hormonal contraceptives; Z79.899 Other long term (current) drug therapy
CPT/HCPCS: 99284; 96374; 96375; 96361; 36415; 80053; 83690; 85025; 81001; 81025; 74177; J2270; J2405; Q9967

== ENCOUNTER 2019-02-02 09:56 | Day surgery (SDC) | payer OTHER ==
[2019-02-01 08:44] VITALS: BMI 16.8
[2019-02-02 12:21] VITALS: TEMP 99.4
[2019-02-02 12:44] LABS: Glucose,Whole Blood 84 mg/dL (75-99)
[2019-02-02] MEDS ORDERED: PROPOFOL 10 MG/ML 20 ML VIAL IV ONE (12:46)
[2019-02-02] MEDS ORDERED: fentaNYL (PF) 50 MCG/ML 2 ML AMP ONE (12:46)
--- NOTE | 2019-02-02 12:59 | P.PCN ---
Date of Procedure: 02/02/19 Procedure(s) Performed: BRIEF HISTORY: Patient is a 23-year-old pleasant white female, scheduled for an elective colonoscopy as a part of chronic diarrhea for the last several months duration. She has bowel movements anywhere from 10-12 a day which are loose to watery in consistency but no blood or mucus in the stool. PROCEDURE PERFORMED: Colonoscopy With random biopsy. PREOPERATIVE DIAGNOSIS:Chronic diarrhea]. IV sedation per Anesthesia. PROCEDURE: After informed consent was obtained, the patient, was brought into the endoscopy unit. IV sedation was administered by Anesthesia under continuous monitoring. Digital rectal examination was normal. Initially the Olympus CF-160 flexible video colonoscope was then inserted in the rectum, gradually advanced into the cecum without any difficulty. Careful examination was performed as the scope was gradually being withdrawn. Ileocecal valve and the appendiceal orifice were visualized and appeared normal. Terminal ileum was intubated and 20 cm visualized and appeared normal. Random biopsies were done from the terminal ileum. Prep was excellent. Mucosa of the cecum, ascending colon, transverse colon, descending colon, sigmoid colon, and rectum appeared normal. Retroflexion was performed in the rectum and no lesions were seen. Biopsies were done from ascending and descending colon to rule out microscopic/collagenous colitis. The patient tolerated the procedure well. IMPRESSION: Normal-appearing colon from rectum to cecum with no evidence of colitis or colorectal neoplasia. RECOMMENDATIONS: Findings of this examination were discussed with the patient as well as a family. She was advised to follow with the biopsy results. She'll be seen in the office in 2-3 weeks.].
[2019-02-02 13:20] VITALS: BP 112/79; PULSE 71; RESP 18
== END 2019-02-02 13:31 | disposition home or self-care (01) ==
LOC: ORWHC2ENDO 09:56
PROVIDERS: ATTEND Internal Medicine Gastroenterology
DX: K52.9 Noninfective gastroenteritis and colitis, unspecified (principal); J45.909 Unspecified asthma, uncomplicated; E07.9 Disorder of thyroid, unspecified; F32.9 Major depressive disorder, single episode, unspecified; Z79.890 Hormone replacement therapy; Z79.899 Other long term (current) drug therapy
CPT/HCPCS: 81025; 88305; 45380; J3010; J2704

== ENCOUNTER 2019-03-11 09:49 | Emergency (ER) | payer OTHER ==
[2019-03-11] MEDS ORDERED: ONDANSETRON 4 MG/2 ML VIAL IVP STA (10:17)
[2019-03-11] MEDS ORDERED: SODIUM CHLORIDE 0.9% 1,000 ML IV STA (10:17)
[2019-03-11] MEDS ORDERED: DICYCLOMINE 10 MG CAP PO STA (10:17)
[2019-03-11] MEDS ORDERED: FAMOTIDINE 20 MG/2 ML VIAL IV STA (10:17)
--- NOTE | 2019-03-11 10:22 | ED ---
General Adult HPI - General Chief complaint: Nausea/Vomiting/Diarrhea Stated complaint: Vomiting Time Seen by Provider: 03/11/19 10:01 Source: patient Mode of arrival: ambulatory Limitations: no limitations - History of Present Illness Initial comments: Patient is a 24-year-old male presenting to the emergency department with chief complaint of nausea vomiting abdominal pain. Patient states the sudden onset of symptoms began yesterday morning after she was eating. Patient reports continuous nausea with multiple episodes of vomiting yesterday but no vomiting today. Patient does report chronic diarrhea. Patient reports the symptoms are not related to by mouth intake. Patient reports the abdominal pain is located in the epigastric and umbilical region. Patient denies any night sweats fevers or chills. Patient reports a chronic history of abdominal pain and sees Dr. Hodge who recently performed an upper GI and could not find anything. Patient denies increased urgency or frequency or dysuria. Patient denies hemoptysis, hematuria, hematochezia or melena. Patient denies any concerns for . Her last menstrual cycle finished yesterday. - Related Data Home Medications Medication Instructions Recorded Confirmed Levothyroxine Sodium [Synthroid] 100 mcg PO QAM 09/05/17 02/01/19 Ranitidine HCl [Zantac] 150 mg PO BID 09/05/17 02/01/19 Albuterol Inhaler [Ventolin Hfa 1 - 2 puff INHALATION RT-Q6H PRN 02/01/19 02/01/19 Inhaler] Dicyclomine [Bentyl] 20 mg PO QID 02/01/19 02/01/19 Fludrocortisone [Florinef] 0.1 mg PO 1100 02/01/19 02/02/19 Fluticasone Nasal [place] [Flonase 1 spray EA NOSTRIL DAILY 02/01/19 02/01/19 Nasal [place]] Ibuprofen 200 mg PO Q6H PRN 02/01/19 02/02/19 Norethindrone-E.estradiol-Iron 1 each PO HS 02/01/19 02/01/19 [Junel Fe 24 Tablet] Sertraline HCl [Zoloft] 100 mg PO QAM 02/01/19 02/01/19 Topiramate [Topamax] 100 mg PO HS 02/01/19 02/01/19 traZODone HCL 100 mg PO HS 02/01/19 02/01/19 Previous Rx's Medication Instructions Recorded Ondansetron Odt [Zofran Odt] 4 mg PO Q8HR PRN #10 tab 12/18/18 Allergies Allergy/AdvReac Type Severity Reaction Status Date / Time No Known Allergies Allergy Verified 03/11/19 09:58 Review of Systems ROS Statement: Those systems with pertinent positive or pertinent negative responses have been documented in the HPI. ROS Other: All systems not noted in ROS Statement are negative. Past Medical History Past Medical History: Asthma, GERD/Reflux Additional Past Medical History / Comment(s): states "pain in stomach when eating and after eating,diarrhea and wt loss", POTS disease,migraines History of Any Multi-Drug Resistant Organisms: None Reported Additional Past Surgical History / Comment(s): eye surg Past Anesthesia/Blood Transfusion Reactions: No Reported Reaction Additional Past Anesthesia/Blood Transfusion Reaction / Comment(s): no hx blood transfusion Past Psychological History: Depression Smoking Status: Never smoker Past Alcohol Use History: None Reported Past Drug Use History: None Reported - Past Family History Mother Family Medical History: No Reported History Father Family Medical History: No Reported History General Exam Limitations: no limitations General appearance: alert, in no apparent distress Head exam: Present: atraumatic, normocephalic, normal inspection Eye exam: Present: normal appearance Pupils: Present: normal accommodation ENT exam: Present: normal exam, mucous membranes moist, normal external ear exam Neck exam: Present: normal inspection, full ROM Respiratory exam: Present: normal lung sounds bilaterally Cardiovascular Exam: Present: regular rate, normal rhythm, normal heart sounds GI/Abdominal exam: Present: soft, tenderness (Epigastric and umbilical tenderness. Negative Calixto sign, negative McBurney point tenderness.), normal bowel sounds. Absent: distended, guarding, rebound, mass Extremities exam: Present: normal inspection, full ROM Back exam: Present: normal inspection, full ROM. Absent: CVA tenderness (R), CVA tenderness (L) Neurological exam: Present: alert, oriented X3 Psychiatric exam: Present: normal affect, normal mood Skin exam: Present: warm, intact, normal color Course Vital Signs 03/11/19 03/11/19 09:56 13:33 Temperature 97.4 F L 98.2 F Pulse Rate 93 65 Respiratory 20 16 Rate Blood Pressure 132/99 111/75 O2 Sat by Pulse 100 99 Oximetry Medical Decision Making - Medical Decision Making Patient is a 24-year-old female with history of chronic diarrhea as presenting to the emergency department with a chief complaint of abdominal pain nausea vomiting diarrhea. Patient reports she developed an onset of nausea and v omiting since yesterday morning. Patient also reports around the same time she is also developed epigastric and umbilical pain. Patient reports the nausea is exacerbated after by mouth intake. Physical examination is indicative of an epigastric and umbilical tenderness. Negative Calixto or McBurney point tenderness. CBC, CMP and UA are unremarkable. Patient had an abdominal CT approximately one month ago with nothing of significance. 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 Patient given symptomatic control with fluids, pain control and antiemetics. Patient advised to use the Zofran that was prescribed at home for the nausea. On reevaluation patient continued to have mild nausea so she was given Reglan as well. I suspect the nature of her symptoms are more likely autoimmune in nature rather than infection. Patient advised to follow-up with GI. Strict return parameters were thoroughly discussed with patient was understanding and agreeable. Case discussed with physician. - Lab Data Result diagrams: 03/11/19 10:43 03/11/19 10:43 Lab Results 03/11/19 03/11/19 03/11/19 Range/Units 10:43 10:43 10:54 WBC 9.3 (3.8-10.6) k/uL RBC 4.94 (3.80-5.40) m/uL Hgb 15.9 (11.4-16.0) gm/dL Hct 46.9 H (34.0-46.0) % MCV 95.0 (80.0-100.0) fL MCH 32.1 (25.0-35.0) pg MCHC 33.8 (31.0-37.0) g/dL RDW 12.8 (11.5-15.5) % Plt Count 305 (150-450) k/uL Neutrophils % 68 % Lymphocytes % 23 % Monocytes % 5 % Eosinophils % 0 % Basophils % 1 % Neutrophils # 6.4 (1.3-7.7) k/uL Lymphocytes # 2.2 (1.0-4.8) k/uL Monocytes # 0.5 (0-1.0) k/uL Eosinophils # 0.0 (0-0.7) k/uL Basophils # 0.1 (0-0.2) k/uL Sodium 140 (137-145) mmol/L Potassium 4.9 (3.5-5.1) mmol/L Chloride 102 (98-107) mmol/L Carbon Dioxide 27 (22-30) mmol/L Anion Gap 11 mmol/L BUN 13 (7-17) mg/dL Creatinine 0.67 (0.52-1.04) mg/dL Est GFR (CKD-EPI)AfAm >90 (>60 ml/min/1.73 sqM) Est GFR (CKD-EPI)NonAf >90 (>60 ml/min/1.73 sqM) Glucose 84 (74-99) mg/dL Calcium 10.0 (8.4-10.2) mg/dL Total Bilirubin 0.5 (0.2-1.3) mg/dL AST 20 (14-36) U/L ALT 22 (9-52) U/L Alkaline Phosphatase 40 (38-126) U/L Total Protein 7.9 (6.3-8.2) g/dL Albumin 4.6 (3.5-5.0) g/dL Amylase 107 (30-110) U/L Lipase 96 (23-300) U/L Urine Color Yellow Urine Appearance Clear (Clear) Urine pH 7.5 (5.0-8.0) Ur Specific [place] 1.018 (1.001-1.035) Urine Protein Negative (Negative) Urine Glucose (UA) Negative (Negative) Urine Ketones Negative (Negative) Urine Blood Trace H (Negative) Urine Nitrite Negative (Negative) Urine Bilirubin Negative (Negative) Urine Urobilinogen <2.0 (<2.0) mg/dL Ur Leukocyte Esterase Trace H (Negative) Urine RBC 1 (0-5) /hpf Urine WBC 2 (0-5) /hpf Ur Squamous Epith Cells 3 (0-4) /hpf Urine Mucus Rare H (None) /hpf Urine HCG, Qual (Not Detectd) 03/11/19 Range/Units 10:54 WBC (3.8-10.6) k/uL RBC (3.80-5.40) m/uL Hgb (11.4-16.0) gm/dL Hct (34.0-46.0) % MCV (80.0-100.0) fL MCH (25.0-35.0) pg MCHC (31.0-37.0) g/dL RDW (11.5-15.5) % Plt Count (150-450) k/uL Neutrophils % % Lymphocytes % % Monocytes % % Eosinophils % % Basophils % % Neutrophils # (1.3-7.7) k/uL Lymphocytes # (1.0-4.8) k/uL Monocytes # (0-1.0) k/uL Eosinophils # (0-0.7) k/uL Basophils # (0-0.2) k/uL Sodium (137-145) mmol/L Potassium (3.5-5.1) mmol/L Chloride (98-107) mmol/L Carbon Dioxide (22-30) mmol/L Anion Gap mmol/L BUN (7-17) mg/dL Creatinine (0.52-1.04) mg/dL Est GFR (CKD-EPI)AfAm (>60 ml/min/1.73 sqM) Est GFR (CKD-EPI)NonAf (>60 ml/min/1.73 sqM) Glucose (74-99) mg/dL Calcium (8.4-10.2) mg/dL Total Bilirubin (0.2-1.3) mg/dL AST (14-36) U/L ALT (9-52) U/L Alkaline Phosphatase (38-126) U/L Total Protein (6.3-8.2) g/dL Albumin (3.5-5.0) g/dL Amylase (30-110) U/L Lipase (23-300) U/L Urine Color Urine Appearance (Clear) Urine pH (5.0-8.0) Ur Specific [place] (1.001-1.035) Urine Protein (Negative) Urine Glucose (UA) (Negative) Urine Ketones (Negative) Urine Blood (Negative) Urine Nitrite (Negative) Urine Bilirubin (Negative) Urine Urobilinogen (<2.0) mg/dL Ur Leukocyte Esterase (Negative) Urine RBC (0-5) /hpf Urine WBC (0-5) /hpf Ur Squamous Epith Cells (0-4) /hpf Urine Mucus (None) /hpf Urine HCG, Qual Not Detected (Not Detectd) Disposition Clinical Impression: Abdominal pain, Nausea vomiting and diarrhea Disposition: HOME SELF-CARE Condition: Stable Instructions (If sedation given, give patient instructions): Acute Nausea and Vomiting (ED) Additional Instructions: Please follow up with primary care. Please return to emergency department if symptoms worsen. Please take Zofran as needed. Please follow BRAT diet. Is patient prescribed a controlled substance at d/c from ED?: No Referrals: Lowell Gardiner DO [Primary Care Provider] - 1-2 days Time of Disposition: 13:08
[2019-03-11 10:50] LABS: Basophils # (A) 0.1 k/uL (0-0.2); Basophils % (A) 1 %; Eosinophils % (A) 0 %; HCT 46.9 % (34.0-46.0); HGB 15.9 gm/dL (11.4-16.0); Lymphocytes # (A) 2.2 k/uL (1.0-4.8); Lymphocytes % (A) 23 %; MCH 32.1 pg (25.0-35.0); MCHC 33.8 g/dL (31.0-37.0); Mean Platelet Volume 6.1; Monocytes # (A) 0.5 k/uL (0-1.0); Monocytes % (A) 5 %; Neutrophils # (A) 6.4 k/uL (1.3-7.7); Neutrophils % (A) 68 %; Platelet Count 305 k/uL (150-450); RBC 4.94 m/uL (3.80-5.40); RDW 12.8 % (11.5-15.5); WBC 9.3 k/uL (3.8-10.6)
[2019-03-11 11:02] LABS: ALT 22 U/L (9-52); AST 20 U/L (14-36); African American GFR (CKD) >90 (>60 ml/min/1.73 sqM); Albumin 4.6 g/dL (3.5-5.0); Alkaline Phosphatase 40 U/L (38-126); Amylase 107 U/L (30-110); Anion Gap 11 mmol/L; Blood Urea Nitrogen 13 mg/dL (7-17); Carbon Dioxide 27 mmol/L (22-30); Chloride 102 mmol/L (98-107); Glucose 84 mg/dL (74-99); Potassium 4.9 mmol/L (3.5-5.1); Sodium 140 mmol/L (137-145); Total Bilirubin 0.5 mg/dL (0.2-1.3); Total Protein 7.9 g/dL (6.3-8.2)
[2019-03-11 11:28] LABS: Appearance,Urine Clear (Clear); Bilirubin,Urine Negative (Negative); Blood,Urine Trace (Negative); Color,Urine Yellow; Glucose,Urine (UA) Negative (Negative); Ketones,Urine Negative (Negative); Leukocyte Esterase,Urine Trace (Negative); Mucus,Urine Rare /hpf; Nitrite,Urine Negative (Negative); PH, Urine 7.5 (5.0-8.0); Protein,Urine Negative (Negative); RBC,Urine 1 /hpf (0-5); Specific Gravity,Urine 1.018 (1.001-1.035); Squamous Epithelial Cell,Urine 3 /hpf (0-4); Urobilinogen,Urine <2.0 mg/dL (<2.0)
[2019-03-11] MEDS ORDERED: METOCLOPRAMIDE 5 MG/ML 2 ML VIAL IVP STA (11:43)
[2019-03-11] MEDS ORDERED: KETOROLAC 30 MG/ML 1 ML VIAL IVP STA (11:43)
[2019-03-11 13:34] VITALS: BP 111/75; PULSE 65; RESP 16; TEMP 98.2
== END 2019-03-11 13:37 | disposition home or self-care (01) ==
LOC: EC 09:49
DX: R11.2 Nausea with vomiting, unspecified (principal); R19.7 Diarrhea, unspecified; R10.13 Epigastric pain; R10.33 Periumbilical pain; Z32.02 Encounter for pregnancy test, result negative; J45.909 Unspecified asthma, uncomplicated; K21.9 Gastro-esophageal reflux disease without esophagitis; F32.9 Major depressive disorder, single episode, unspecified; Z79.51 Long term (current) use of inhaled steroids; Z79.890 Hormone replacement therapy; Z79.899 Other long term (current) drug therapy
CPT/HCPCS: 36415; 80053; 82150; 83690; 85025; 81001; 81025; 99284; 96374; 96375 ×3; J2765; J2405; J1885

== ENCOUNTER → 2019-03-18 | Outpatient (CLI) | payer OTHER ==
--- NOTE | 2019-03-18 16:12 | US ---
EXAMINATION TYPE: US thyroid st tissue head/neck DATE OF EXAM: 03/18/2019 COMPARISON: NONE CLINICAL HISTORY: R59.9 Enlarged Lymph Nodes, R22.1 Mass/Swelling. Lump right posterior neck 3 hypoechoic areas noted right posterior neck within area of concern with largest = 0.6 x 0.3 x 0.8cm , possible lymph nodes Probable prominent but subcentimeter benign-appearing lymph nodes or dermatologic lesions of benign m orphology as they are localized to the junction of the skin and superficial subcutaneous fat. IMPRESSION: As above.
== END ==
LOC: RADUSWWP 15:21
PROVIDERS: ATTEND Family Medicine
DX: R59.9 Enlarged lymph nodes, unspecified (principal); R22.1 Localized swelling, mass and lump, neck
CPT/HCPCS: 76536

== ENCOUNTER → 2019-03-18 | Outpatient (CLI) | payer OTHER ==
[2019-03-19 01:12] LABS: Gliadin AB IgA, Deaminated NEGATIVE (NEGATIVE); Gliadin AB IgA, Unit <0.2 U/mL; Gliadin AB IgG, Deaminated NEGATIVE (NEGATIVE)
== END | disposition home or self-care (01) ==
LOC: LABWHC1 15:10
PROVIDERS: ATTEND Internal Medicine Gastroenterology
DX: K52.9 Noninfective gastroenteritis and colitis, unspecified (principal)
CPT/HCPCS: 36415; 83516; 85652; 86140

== ENCOUNTER → 2019-10-28 | Outpatient (CLI) | payer OTHER ==
[2019-10-28 13:04] LABS: Basophils # (A) 0.1 k/uL (0-0.2); Basophils % (A) 1 %; Eosinophils % (A) 1 %; HCT 42.1 % (34.0-46.0); HGB 13.5 gm/dL (11.4-16.0); Lymphocytes # (A) 1.3 k/uL (1.0-4.8); Lymphocytes % (A) 33 %; MCH 30.4 pg (25.0-35.0); MCHC 32.1 g/dL (31.0-37.0); MCV 94.6 fL (80.0-100.0); Mean Platelet Volume 8.6; Monocytes # (A) 0.3 k/uL (0-1.0); Monocytes % (A) 6 %; Neutrophils # (A) 2.1 k/uL (1.3-7.7); Neutrophils % (A) 55 %; Platelet Count 222 k/uL (150-450); RBC 4.45 m/uL (3.80-5.40); RDW 12.4 % (11.5-15.5); WBC 3.8 k/uL (3.8-10.6)
[2019-10-28 19:16] LABS: African American GFR (CKD) 121.3 (60.0-200.0); Albumin 4.7 g/dL (3.80-4.90); Albumin/Globulin Ratio 2.04 (1.60-3.17); Anion Gap 9.4 mmol/L (4.00-12.00); BUN/Creat Ratio 13.75 Ratio (12.00-20.00); Calcium 9.4 mg/dL (8.7-10.3); Carbon Dioxide 26.6 mmol/L (21.6-31.8); Chol/HDL Ratio 2.36; Globulin 2.3 g/dL (1.6-3.3); LDL Cholesterol,Calculated 67.8 mg/dL (0.0-131.0); Non-African American GFR(CKD) 104.6 (60.0-200.0); Potassium 3.6 mmol/L (3.5-5.5); Total Bilirubin 0.8 mg/dL (0.2-1.2); VLDL Calculation 11.2 mg/dL (5.00-40.00)
[2019-10-28 19:23] LABS: T4, Free (Free Thyroxine) 1.4 ng/dL (0.80-1.80)
== END | disposition home or self-care (01) ==
LOC: LABWHC1 11:41
PROVIDERS: ATTEND Physician Assistant
DX: I95.1 Orthostatic hypotension (principal); E03.9 Hypothyroidism, unspecified; Q03.1 Atresia of foramina of Magendie and Luschka
CPT/HCPCS: 36415; 80053; 80061; 84439; 84443; 85025